=== PATIENT | male | born 1985 | race Caucasian/White ===

== ENCOUNTER 2022-08-11 16:25 | Outpatient (CLI) | payer OTHER, SELFPAY ==
[2022-08-11 22:08] LABS: Albumin* 5.4 g/dL (3.3-5.0); Chloride* 101 mmol/L (96-114)
[2022-08-11 22:09] LABS: Potassium* 5.7 mmol/L (3.6-5.1); Sodium* 137 mmol/L (135-149)
[2022-08-11 22:11] LABS: Aspartate Amino Transferase* 116 U/L (12-35); Bilirubin Total* 0.7 mg/dL (0.1-1.5); Carbon Dioxide* 23 mmol/L (20-32); Creatinine* 1.8 mg/dL (0.5-1.5); Estimated Glomerular Filt Rate 50 ml/min; Total Protein* 8.4 g/dL (6.0-8.3)
[2022-08-11 22:12] LABS: Alanine Aminotransferase* 73 U/L (4-50); Alkaline Phosphatase* 125 U/L (40-150); Blood Urea Nitrogen* 35 mg/dL (5-24); Calcium* 10.4 mg/dL (8.4-10.6); Glucose* 105 mg/dL (60-115)
== END 2022-08-11 16:26 | disposition home or self-care (01) ==
LOC: LKVREF 16:26
PROVIDERS: PCP Family Medicine; Visit Provider Family Medicine
DX: I10 Essential (primary) hypertension (principal); R79.89 Other specified abnormal findings of blood chemistry
CPT/HCPCS: 80053

== ENCOUNTER 2022-12-08 14:30 | Outpatient (CLI) | payer OTHER, SELFPAY | END 2022-12-08 14:31 | disposition home or self-care (01) | LOC: NFLDREF 12-13 09:03 | PROVIDERS: PCP Family Medicine; Referring Provider Family Medicine; Visit Provider Nurse Practitioner Family | DX: I10 Essential (primary) hypertension (principal); N63.10 Unspecified lump in the right breast, unspecified quadrant | CPT/HCPCS: 80048 ==

== ENCOUNTER 2022-12-13 14:30 | Outpatient (CLI) | payer OTHER, SELFPAY | END 2022-12-13 14:31 | disposition home or self-care (01) | LOC: NFLDREF 12-15 06:49 | PROVIDERS: PCP Family Medicine; Referring Provider Family Medicine; Visit Provider Nurse Practitioner Family | DX: E03.9 Hypothyroidism, unspecified (principal); N63.10 Unspecified lump in the right breast, unspecified quadrant; I10 Essential (primary) hypertension | CPT/HCPCS: 77066; 84443; G0279 ==

== ENCOUNTER 2023-03-02 08:10 | Outpatient (CLI) | payer OTHER, SELFPAY | END 2023-03-02 08:11 | disposition home or self-care (01) | LOC: NFLDREF 03-03 14:55 | PROVIDERS: PCP Family Medicine; Referring Provider Family Medicine; Visit Provider Family Medicine | DX: E03.9 Hypothyroidism, unspecified (principal); I10 Essential (primary) hypertension; R79.89 Other specified abnormal findings of blood chemistry | CPT/HCPCS: 80053; 80061; 84443 ==

== ENCOUNTER 2024-06-12 08:08 | Outpatient (CLI) | payer OTHER, SELFPAY | END 2024-06-12 08:09 | disposition home or self-care (01) | LOC: NFLDREF 15:42 | PROVIDERS: PCP Family Medicine; Referring Provider Family Medicine; Visit Provider Family Medicine | DX: E66.9 Obesity, unspecified (principal); E03.9 Hypothyroidism, unspecified; E11.9 Type 2 diabetes mellitus without complications; R79.89 Other specified abnormal findings of blood chemistry; I10 Essential (primary) hypertension; R53.83 Other fatigue; G40.409 Other generalized epilepsy and epileptic syndromes, not intractable, without status epilepticus | CPT/HCPCS: 80053; 80061; 82043; 82570; 84443 ==

== ENCOUNTER 2025-02-23 15:05 | Emergency (ER) | payer OTHER, SELFPAY ==
[2025-02-23] VITALS (20 sets, daily range): BP systolic 116–136; BP diastolic 65–78; PULSE 60–87; RESP 14–24; TEMP 37.1; O2SAT 96–99; BMI 38.0
--- OUTSIDE RECORDS SUMMARY | 2025-02-23 15:06 | XMS_ITS | Clinical Summary ---
Author Organization [facility] Address [address] [place] [address] Care Team Providers Care Fuel Attendant Name Role Phone Pcp, No Primary Care Provider Unavailabl e Allergies No known active allergies Medications amLODIPine (NORVASC) 10 mg tabletIndicatio ns:HTN (hypertension) TAKE 1 TABLET BY MOUTH ONCE DAILY 30 tablet 11/01/2016 Active lisinopril-hydr ochlorothiazide , 20-25 mg, (PRINZIDE, ZESTORETIC) 20-25 mg per tabletIndicatio ns:HTN (hypertension) TAKE 1 TABLET BY MOUTH EVERY MORNING 30 tablet 11/01/2016 Active levothyroxine (SYNTHROID) 88 mcg tablet Take 88 mcg by mouth once daily. 02/11/2025 Active metoprolol succinate SR (TOPROL XL) 200 mg Sustained-Relea se tablet Take 200 mg by mouth once daily. 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 10/28/2014 Overview (10/28/2014): CREATININE (mg/dL) Date Value 10/27/2014 1.93* HTN (hypertension) 08/20/2014 Obese 08/20/2014 Proteinuria 08/20/2014 Hypertensive urgency 08/20/2014 Encounters Date Type Department Care Team Description 02/21/2025 12:36 PM CDT - 02/21/2025 1:32 PM CDT Emergency [facility] [address] [place] [address] Jael Ayoub PA Pleural effusion (Primary Dx) Discharge Disposition: Home Self Care 02/21/2025 Travel from Last 3 Months Immunizations Immunization Administration Dates Next Due Tdap 06/12/2009 Family History Medical History Relation Name Comments Good Health Brother Hypertension Father Good Health Mother Hypertension Sister Relation Name Status Comments Brother Father Maternal Grandfather celluli tis Maternal Grandmother old age Mother Paternal Grandfather alzheim er Paternal Grandmother heart p roblems Sister Social History Tobacco Use Types Packs/Day Years Used Date Smoking Tobacco: Never Tobacco Cessation:Counseling Given: No Alcohol Use Standard Drinks/Week Comments Yes 3.3 (1 standard drink = 0.6 oz p ure alcohol) hard liquor every other week Interpersonal Safety Answer Date Record ed Are you being hit, kicked, p ushed or yelled at (see row info)? 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 EXECUTIVE Gender Identity Not on file Sexual Orientation Not on file Obstetrics History Last Filed Vital Signs Vital Sign Reading Time Taken Comments Blood Pressure 121/78 02/21/2025 12:41 PM CDT Pulse 94 02/21/2025 12:41 PM CDT Temperature 37.2 C (98.9 F) 02/21/2025 12:41 PM CDT Respiratory Rate 20 02/21/2025 12:41 PM CDT Oxygen Saturation 99% 02/21/2025 12:41 PM CDT Inhaled Oxygen Concentration - - Weight 115.7 kg (255 lb) 02/21/2025 12:41 PM CDT Height 172.7 cm (5' 8) 02/21/2025 12:41 PM CDT Body Mass Index 38.77 02/21/2025 12:41 PM CDT Plan of Treatment Health Maintenance Due Date Last Done Comments Depression screening for age 12+ 1998 HIV for age 15-65 2001 BMI (ht and wt on same day) for age 18+ 2004 Hepatitis B series for 19+ ( 1 of 3 - 19+ 3-dose series) 2005 Pneumococcal series for age 6-49 (1 of 2 - PCV) 2005 Tetanus booster 06/12/2019 06/12/2009 Lipids for age 35-44 2021 08/20/2014 COVID-19 vaccine series (2023- season) 2024 08/17/2021, 01/05/2021, 12/15/2020 Influenza Vaccine (#1) 2025 Hepatitis C screening for age 18-79 Completed 10/27 Goals Goal Patient Goal Type Associated Problems Recent Progress Patient-Stated? Author BLOOD PRESSURE-YANELY INTAINS BP LESS THAN 130/80 Blood Pressure No Trish Odom MD Procedures Procedure Name Priority Date/Time Associated Diagnosis Comments XR CHEST 2 VIEWS PA AND LATERAL STAT 02/21/2025 12:59 PM CDT ANTI HCV Routine 10/27/2014 12:34 PM CDT Fatty liver LIPID PANEL W REFLEX MEASURED LDL Routine 08/20/2014 10:46 AM CHANNEL EXECUTIVE HTN (hypertension) from Last 3 Months or Most Recently Relevant to Health Maintenance Results * XR CHEST 2 VIEWS PA AND LATERAL (02/21/2025 12:59 PM CDT) Anatomical Region Laterality Modality CHEST, THORAX, Lung, HEART Compu amanda Radiography 02/21/2025 1:17 PM CDT Impressions 02/21/2025 1:17 PM CDT Small left pleural effusion Dictated by Scar Myers MD @ 02/21/2025 1:17:27 PM (Electronically Signed) Narrative 02/21/2025 1:17 PM CDT For Patients: As a result of the Century Cures Act, medical imaging exams and procedure reports are released immediately into your electronic medical record. You may view this report before your referring provider. If you have questions, please contact your health care provider. INDICATION: Chest pain TECHNIQUE: PA and lateral COMPARISON: None FINDINGS: Small left pleural effusion. Clear lungs. Heart size and pulmonary vasculature within normal limits. No significant osseous abnormality. Procedure Note Scar Myers MD - 02/21/2025 For Patients: As a result of the Cures Act, medical imagingexams and procedure reports are released immediately into your electronicmedical record. You may view this report before your referring provider.If you have questions, please contact your health care provider. INDICATION: Chest pain TECHNIQUE: PA and lateral COMPARISON: None FINDINGS: Small left pleural effusion. Clear lungs. Heart size and pulmonaryvasculature within normal limits. No significant osseous abnormality. IMPRESSION: Small left pleural effusion Dictated by Scar Myers MD @ 02/21/2025 1:17:27 PM (Electronically Signed) us [facility] Final Resu lt * ANTI HCV (10/27/2014 12:34 PM CDT) Pathologist [facility] HEPATITIS C ANTIBODY Non-Reacti ve Non-Reacti ve 10/27/2014 8:41 PM CDT [facility] Blood specimen (specimen) BLOOD SPECIMEN / Unknown Venipuncture / Unknown 10/27/2014 12:34 PM CDT 10/27/2014 12:34 PM CDT Narrative [facility] - 10/27/2014 8:41 PM CDT Antibodies to HCV not detected; does not exclude the possibility of exposure to HCV. us Trish Odom MD SEND OUTS Final Result [facility] [address] [place] [address], [place] * (ABNORMAL) LIPID PANEL W REFLEX MEASURED LDL (08/20/2014 10:46 AM CHANNEL EXECUTIVE) Pathologist [facility] CHOLESTEROL,TOTAL 291(H) 100 - 199 mg/dL 08/20/2014 8:48 PM CHANNEL EXECUTIVE [facility] TRIGLYCERIDES 259(H) <150 mg/dL 08/20/2014 8:48 PM CHANNEL EXECUTIVE [facility] HDL CHOLESTEROL 110 >40 mg/dL 5 8:48 PM CHANNEL EXECUTIVE [facility] NON-HDL CHOLESTEROL 181(H) <145 mg/dl 08/20/2014 8:48 PM CHANNEL EXECUTIVE [facility] CHOL/HDL RATIO 2.65 <4.50 08/20/2014 8:48 PM CHANNEL EXECUTIVE [facility] LDL CHOLESTEROL 129 <=130 mg/dL 08/20/2014 8:48 PM CHANNEL EXECUTIVE [facility] PATIENT STATUS FASTING 08/20/2014 8:48 PM CHANNEL EXECUTIVE [facility] Blood specimen (specimen) BLOOD SPECIMEN / Unknown Venipuncture / Unknown 08/20/2014 10:46 AM CHANNEL EXECUTIVE 08/20/2014 10:46 AM CHANNEL EXECUTIVE Trish Odom MD CHEMISTRY Final Result [facility] [address] [place] [address], from Last 3 Months or Most Recently Relevant to Health Maintenance Insurance [facility] Care Teams Fuel Attendant Relationship Specialty Start Date End Date Pcp, No . PCP - General 02/21/25
--- OUTSIDE RECORDS SUMMARY | 2025-02-23 15:06 | XMS_ITS | Encounter Summary ---
Author Organization [facility] Address [address] [place] [address] Care Team Providers Care Receiver Setter Name Role Phone Jeff An MD Unavailable [phone] Fadi Hickman MD Unavailable [phone] Willi Pruett MD Primary Care Provider [phone] Encounter Details Date Type Department Care Team (Late st Contact Info) Description 10/31/2016 Team Conference [facility] [address] [place] [address] Dao Delarosa MD [facility] [address] [place] [address] Social History Tobacco Use Types Packs/Day Years Used Date Smoking Tobacco: Never Alcohol Use Standard Drinks/Week Comments No 0 (1 standard drink = 0.6 oz pur e alcohol) Sex and Gender Information Value Date Recorded Sex Assigned at Not on file Legal 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 Gender Identity Not on file Sexual Orientation Not on file documented as of this encounter Miscellaneous Notes * Telephone Encounter - Dao Delarosa MD - 10/31/2016 11:07 AM CDT Patient Position (indicated by x): Supine X Supine with torso rolled up on a bump Floppy lateral on torso length kumar bag Lateral decubitus, kumar bag, full length Lateral decubitus, Wixson hip positioner Safety paddle side supports x 2 clamped to side rail Lithotomy, both legs in yellow padded leg leslie Lithotomy, single leg in yellow padded leg leslie Prone on blanket rolls/round gel pad Prone on Renzo (arched) frame on Ketan table Single thigh in orange arthroscopy clamp Beach chair semi recumbent Spider limb positioner Arm out on radiolucent arm table X Split drape with top bar Revision ANNEMARIE drape with plastic side bags for leg Extremity drape Shoulder pack drape Laparotomy drape Cohen catheter General Equipment Requests (indicated by x): C-Arm with C-Armor drape C-Arm (video capable, [employer] R[employer] 9900 model) O-Arm with Stealth imaging Fracture Table X Ketan XR Table Cell saver Hickman Biopsy trephine set w/ K-wire & pituitary rongeurs Small pituitary rongeur Vick's angled curettes, narrow shaft Bone graft, kapner gouges Midas Edd Medtronic sarah, electric motor Phenol 5% X [place] BMAC stem cell Vancomycin 1 gram powder Zometa 4 mg vials Depo Medrol steroid Blunt Pelvic Retractor (AO 398.55, Blunt Hohmann with slight bend) (1) Portable hand held radiation detector machine for sentinel node biopsy and (2) Lymphazurin Lambotte Osteotomes Specimens and cultures (indicated by x): Tissue cultures, aerobic and anaerobic without gram stain Frozen section pathology specimens - fresh pathology specimens - formalin Plan- Core decompression RIGHT hip for EtOH ONFH ARCO 2- right ARCO 3- left documented in this encounter Plan of Treatment Not on file documented as of this encounter Visit Diagnoses Not on filedocumented in this encounter Care Teams Receiver Setter Relationship Specialty Start Date End Date Willi Pruett MD [facility] [address] [place] [address] PCP - General Family Practice 10/13/16 Jeff An MD [facility] [address] [place] [address] Family Practice 10/11/16 Fadi Hickman MD [address] [place], [place] [id number] [place] [address] Orthopedics 10/11/16 documented as of this encounter
--- OUTSIDE RECORDS SUMMARY | 2025-02-23 15:06 | XMS_ITS | Clinical Summary ---
Author Organization [facility] Address [address] [place] [address] Care Team Providers Care Track Rider Name Role Phone Jeff An MD Unavailable [phone] Fadi Hickman MD Unavailable [phone] Willi Pruett MD Primary Care Provider [phone] Allergies No known active allergies Medications amLODIPine (NORVASC) 10 MG tablet Take 10 mg by mouth At Bedtime 7 Active hydrochlorothiazi de (HYDRODIURIL) 25 MG tabletIndications :Hypertensive urgency Take 1 tablet (25 mg) by mouth daily 30 tablet 1 7 Active metoprolol succinate (TOPROL-XL) 50 MG 24 hr tablet 8 Active ASPIRIN NOT PRESCRIBED (INTENTIONAL)Cata cations:Essential hypertension Please choose reason not prescribed, below 0 each 8 Active STATIN NOT PRESCRIBED, INTENTIONAL,Indic ations:Essential hypertension Evaluation in progress, followed by PCP 8 Active Active Problems Problem Noted Date Diagnosed Date Recent onset of diabetes mellitus 10/28/2014 Overview (10/13/2016): Overview: Formatting of this note may be different from the original. Type II most likely HEMOGLOBIN A1C SCREENING (% Total Hgb) Date Value 10/27/2014 6.4* Hypertensive renal disease 10/28/2014 Overview (10/13/2016): Overview: Formatting of this note may be different from the original. CREATININE (mg/dL) Date Value 10/27/2014 1.93* Hypertensive emergency 08/20/2014 Hypertension 08/20/2014 Hypertensive urgency 08/20/2014 Adiposity 08/20/2014 Proteinuria 08/20/2014 Social History Tobacco Use Types Packs/Day Years Used Date Smoking Tobacco: Never Smokeless Tobacco: Never Tobacco Cessation:Ready to Q uit: No Alcohol Use Standard Drinks/Week Comments Yes 0 (1 standard drink = 0.6 oz pur e alcohol) 6 Adolescent Education Answer Date Record ed Getting School Help Needed Not on file 05/20 Sex and Gender Information Value Date Recorded Sex Assigned at Not on file Legal Sex Male 3:40 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 Gender Identity Not on file Sexual Orientation Not on file Last Filed Vital Signs Vital Sign Reading Time Taken Comments Blood Pressure 150/89 06/12/2018 11:37 AM CDT Pulse 111 06/12/2018 11:37 AM CDT Temperature 36.8 C (98.2 F) 12/02/2016 2:00 PM CDT Respiratory Rate 18 06/12/2018 11:3 7 AM CDT Oxygen Saturation 100% 06/12/2018 11: 37 AM CDT Inhaled Oxygen Concentration - - Weight 103.1 kg (227 lb 6.4 oz) 018 11:37 AM CDT Height 175.3 cm (5' 9) 06/12/2018 11:3 7 AM CDT Body Mass Index 33.58 06/12/2018 11:37 AM CDT Plan of Treatment Not on file Insurance [address] [place] [address] [place] [address] [facility] SAVERS [facility] [employer] Advance Directives For more information, please contact: [phone] * Full Code (Latest Code Status on File) Date Activated Date Inactivated Comments 08/22/2014 8:20 AM * Full Code Date Activated Date Inactivated Comments 08/20/2014 2:51 PM 08/22/2014 8:20 AM Care Teams Track Rider Relationship Specialty Start Date End Date Willi Pruett MD [facility] [address] [place] [address] PCP - General Family Practice 10/13/16 Jeff An MD [facility] [address] [place] [address] Family Practice 10/11/16 Fadi Hickman MD [facility] [place] [address] Orthopedics 10/11/16
--- OUTSIDE RECORDS SUMMARY | 2025-02-23 15:06 | XMS_ITS | Encounter Summary ---
Author Organization [facility] Address [address] [place] [address] Care Team Providers Care Golf Club Facer Name Role Phone Jeff An MD Unavailable [phone] Fadi Hickman MD Unavailable [phone] Willi Pruett MD Primary Care Provider [phone] Reason for Visit * Reason Onset Date Comments Previsit 06/11/2018 Encounter Details Date Type Department Care Team (Late st Contact Info) Description 06/11/2018 PRE VISIT [facility] [address] [address] Rosamaria Corbett MD [address] [place] [address] Previsit Social History Tobacco Use Types Packs/Day Years Used Date Smoking Tobacco: Never Alcohol Use Standard Drinks/Week Comments Yes 0 (1 standard drink = 0.6 oz pur e alcohol) 6 Sex and Gender Information Value Date Recorded Sex Assigned at Not on file Legal Sex Male 3:40 AM OPEN CUT 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 Gender Identity Not on file Sexual Orientation Not on file documented as of this encounter Plan of Treatment Not on file documented as of this encounter Visit Diagnoses Not on filedocumented in this encounter Care Teams Golf Club Facer Relationship Specialty Start Date End Date Willi Pruett MD [facility] [address] [place] [address] PCP - General Family Practice 10/13/16 Jeff An MD [facility] [place] [address] Family Practice 10/11/16 Fadi Hickman MD [facility] [address] [place] [address] Orthopedics 10/11/16 documented as of this encounter
--- OUTSIDE RECORDS SUMMARY | 2025-02-23 15:06 | XMS_ITS | Clinical Summary ---
Author Organization [facility] Address [address] [address] Phone Care Team Providers Care Bed Bug Exterminator Name Role Phone Unavailable Primary Care Provider Unavailabl e Allergies No known active allergies Medications hydroCHLOROthiaz matthew (Hydrodiuril) 25 MG tablet Take 25 mg by mouth one time a day. Active amLODIPine (Norvasc) 10 MG tablet Take 10 mg by mouth one time a day. Active Metoprolol Succinate 100 MG Capsule ER 24 Hour Sprinkle Take by mouth. Active Social History Tobacco Use Types Packs/Day Years Used Date Smoking Tobacco: Never Assessed Sex and Gender Information Value Date Recorded Sex Assigned at Not on file Legal Sex Male 11:33 PM CDT Gender Identity Not on file Sexual Orientation Not on file Last Filed Vital Signs Vital Sign Reading Time Taken Comments Blood Pressure 199/122 03/23/2020 1:40 AM CDT Pulse 116 03/23/2020 1:40 AM CDT Temperature 36.8 C (98.2 F) 03/22/2020 11:44 PM CDT Respiratory Rate 28 03/23/2020 1:40 AM CDT Oxygen Saturation 99% 03/23/2020 1:40 AM CDT Inhaled Oxygen Concentration - - Weight 112 kg (246 lb 14.6 oz) 03/22/2020 11:44 PM CDT Height - - Body Mass Index - - Plan of Treatment Health Maintenance Due Date Last Done Comments Hepatitis B Vaccine (Standin g Order) (1 of 3 - 19+ 3-dose series) 2005 PERTUSSIS (Standing Order) 2005 TETANUS (Standing Order) 2005 HPV Vaccine (Standing Order) Aged Out No longer eligible based on patient's age to complete this topic Pneumococcal/PCV20 Vaccine: Pediatrics (2-5 yrs) and At-Risk Patients (6-49 yrs) (Standing Order) Aged Out No longer eligible b ased on patient's age to complete this topic Insurance [address] [place] [address] [employer] [facility] [address] [place] [id number]
--- NOTE | 2025-02-23 15:19 | ED.CHESTPAIN ---
HPI - Chest Pain General Time Seen by Provider: 15:19 <Portia Dubon MD - Last Filed: 02/23/25 15:47> Date Seen: 02/23/25 <Portia Dubon MD - Last Filed: 02/23/25 15:47> Chief Complaint: Chest Pain <Portia Dubon MD - Last Filed: 02/23/25 15:47> Stated Complaint: Chest pains for past week <Portia Dubon MD - Last Filed: 02/23/25 15:47> Time Seen by Provider: 02/23/25 15:18 <Portia Dubon MD - Last Filed: 02/23/25 15:47> Source: patient, RN notes reviewed and old records reviewed <Portia Dubon MD - Last Filed: 02/23/25 15:47> Mode of arrival: ambulatory <Portia Dubon MD - Last Filed: 02/23/25 15:47> Limitations: no limitations <Portia Dubon MD - Last Filed: 02/23/25 15:47> History of Present Illness HPI narrative: Bar is a very pleasant 39-year-old male with a history of hypothyroidism, hypertension currently on amlodipine Synthroid lisinopril and metoprolol who comes to the emergency room with ongoing chest pain. Patient notes that he developed chest pain bilateral upper chest 1 week ago. He notes that it was definitely worse with deep inspiration. He was seen on MondayFebruary 21 at which time he had a chest x-ray done in urgent care that showed a small pleural effusion. Since that time he has had some improvement and now the pain is mainly in his left upper chest. He has not had any shortness of breath cough or recent illness over the last month. He has not had pain like this in the past. He notes no recent travel, swelling of his calves or calf tenderness or history of blood clots. His family is otherwise healthy. He had been using ibuprofen which seemed to help but did not have any today. He was told to seek medical attention if he is not improving. He does have a follow-up appointment with his primary doctor [facility] on MondayFebruary 28. Patient denies wheezing, vomiting, nausea, fever, sore throat or runny nose. Patient does not smoke, uses alcohol occasionally and does not use drugs. <Portia Dubon MD - Last Filed: 02/23/25 15:47> Related Data Home Medications: Previous Rx's ?Medication ?Instructions ?Recorded amlodipine 10 mg tablet 10 mg PO QDAY #90 tabs 11/19/24 levothyroxine 88 mcg tablet 88 mcg PO QDAY #90 tabs 11/19/24 metoprolol succinate 200 mg 200 mg PO QDAY #90 tabs 11/19/24 tablet,extended release 24 hr lisinopril 20 1 tab PO QDAY #30 tabs 01/24/25 mg-hydrochlorothiazide 25 mg tablet colchicine 0.6 mg tablet 0.3 mg (1/2 x 0.6 mg) PO DAILY #7 02/23/25 tabs <Portia Dubon MD - Last Filed: 02/23/25 15:47> Allergies/Adverse Reactions: Allergies Allergy/AdvReac Type Severity Reaction Status Date / Time No Known Allergies Allergy Unknown Verified 02/23/25 19:30 <Portia Dubon MD - Last Filed: 02/23/25 15:47> Review of Systems Status of ROS Reports: 10 or more systems reviewed and unremarkable except as noted in History and below <Portia Dubon MD - Last Filed: 02/23/25 15:47> Const Reports: fatigue; Denies: fever or chills <Portia Dubon MD - Last Filed: 02/23/25 15:47> Cardio Denies: chest pain, swelling of feet/ankles, lightheadedness or shortness of breath with exertion <Portia Dubon MD - Last Filed: 02/23/25 15:47> Resp Denies: shortness of breath, cough or wheezing <Portia Dubon MD - Last Filed: 02/23/25 15:47> GI Denies: abdominal pain, nausea or vomiting <Portia Dubon MD - Last Filed: 02/23/25 15:47> Denies: painful urination <Portia Dubon MD - Last Filed: 02/23/25 15:47> Musculo Denies: back pain <Portia Dubon MD - Last Filed: 02/23/25 15:47> Endo Reports: fatigue <Portia Dubon MD - Last Filed: 02/23/25 15:47> Allergy/Immuno Denies: wheezing <Portia Dubon MD - Last Filed: 02/23/25 15:47> [facility] Medical History: Medical History 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 - Other generalized epilepsy and epileptic syndromes, not intractable, without status epilepticus (ICD-10) Obesity ?E66.9 - Obesity, unspecified (ICD-10) Fatty liver ?K76.0 - Fatty (change of) liver, not elsewhere classified (ICD-10) History of alcoholism ?F10.21 - Alcohol dependence, in remission (ICD-10) History of alcoholic hepatitis ?Z87.19 - Personal history of other diseases of the digestive system (ICD-10) <Portia Dubon MD - Last Filed: 02/23/25 15:47> Social History: Social History Smoking Status: Never smoker How often do you have a drink containing alcohol: 2-4 times a month AUDIT-C Alcohol total score: 2 Non-prescribed substance use: denies use service: No <Portia Dubon MD - Last Filed: 02/23/25 15:47> Exam Narrative Exam Narrative: Patient is alert and oriented. No acute distress. External ears eyes nose clear. Neck is supple. Heart with regular rate and rhythm. Initially I did think I auscultated a rub but I do think this is a normal systolic murmur that I am hearing. Lungs are clear in all lung hester. There is no calf tenderness in lower extremities are not edematous. <Portia Dubon MD - Last Filed: 02/23/25 15:47> Const Vital Signs, click to edit/add: Vital Signs - 24 hr 02/23/25 15:09 02/23/25 15:51 02/23/25 16:00 Temperature 98.7 F Pulse Rate 74 Pulse Rate [Pulse Oximeter] 87 Respiratory Rate 18 21 20 Blood Pressure Blood Pressure [Right Upper Arm] 136/75 Pulse Oximetry 98 97 Oxygen Delivery Method Room Air 02/23/25 16:14 02/23/25 16:15 02/23/25 16:30 Temperature Pulse Rate Pulse Rate [Pulse Oximeter] Respiratory Rate 21 17 19 Blood Pressure 126/74 Blood Pressure [Right Upper Arm] Pulse Oximetry Oxygen Delivery Method 02/23/25 16:45 02/23/25 17:00 02/23/25 17:02 Temperature Pulse Rate 60 61 Pulse Rate [Pulse Oximeter] Respiratory Rate 19 23 22 Blood Pressure 116/65 Blood Pressure [Right Upper Arm] Pulse Oximetry 96 99 Oxygen Delivery Method 02/23/25 17:03 02/23/25 17:15 02/23/25 17:30 Temperature Pulse Rate 60 74 62 Pulse Rate [Pulse Oximeter] Respiratory Rate 23 22 19 Blood Pressure Blood Pressure [Right Upper Arm] Pulse Oximetry 96 99 97 Oxygen Delivery Method 02/23/25 17:32 02/23/25 17:45 02/23/25 18:00 Temperature Pulse Rate 65 70 67 Pulse Rate [Pulse Oximeter] Respiratory Rate 22 24 22 Blood Pressure 131/66 Blood Pressure [Right Upper Arm] Pulse Oximetry 97 96 97 Oxygen Delivery Method 02/23/25 18:02 02/23/25 18:15 02/23/25 19:20 Temperature Pulse Rate 65 72 Pulse Rate [Pulse Oximeter] Respiratory Rate 22 22 14 Blood Pressure 128/78 Blood Pressure [Right Upper Arm] Pulse Oximetry 98 97 Oxygen Delivery Method 02/23/25 19:21 02/23/25 19:30 Temperature Pulse Rate 76 79 Pulse Rate [Pulse Oximeter] Respiratory Rate 20 16 Blood Pressure 129/67 Blood Pressure [Right Upper Arm] Pulse Oximetry 97 97 Oxygen Delivery Method <Portia Dubon MD - Last Filed: 02/23/25 15:47> Vital Signs - 24 hr 02/23/25 15:09 02/23/25 15:51 02/23/25 16:00 Temperature 98.7 F Pulse Rate 74 Pulse Rate [Pulse Oximeter] 87 Respiratory Rate 18 21 20 Blood Pressure Blood Pressure [Right Upper Arm] 136/75 Pulse Oximetry 98 97 Oxygen Delivery Method Room Air 02/23/25 16:14 02/23/25 16:15 02/23/25 16:30 Temperature Pulse Rate Pulse Rate [Pulse Oximeter] Respiratory Rate 21 17 19 Blood Pressure 126/74 Blood Pressure [Right Upper Arm] Pulse Oximetry Oxygen Delivery Method 02/23/25 16:45 02/23/25 17:00 02/23/25 17:02 Temperature Pulse Rate 60 61 Pulse Rate [Pulse Oximeter] Respiratory Rate 19 23 22 Blood Pressure 116/65 Blood Pressure [Right Upper Arm] Pulse Oximetry 96 99 Oxygen Delivery Method 02/23/25 17:03 02/23/25 17:15 02/23/25 17:30 Temperature Pulse Rate 60 74 62 Pulse Rate [Pulse Oximeter] Respiratory Rate 23 22 19 Blood Pressure Blood Pressure [Right Upper Arm] Pulse Oximetry 96 99 97 Oxygen Delivery Method 02/23/25 17:32 02/23/25 17:45 02/23/25 18:00 Temperature Pulse Rate 65 70 67 Pulse Rate [Pulse Oximeter] Respiratory Rate 22 24 22 Blood Pressure 131/66 Blood Pressure [Right Upper Arm] Pulse Oximetry 97 96 97 Oxygen Delivery Method 02/23/25 18:02 02/23/25 18:15 02/23/25 19:20 Temperature Pulse Rate 65 72 Pulse Rate [Pulse Oximeter] Respiratory Rate 22 22 14 Blood Pressure 128/78 Blood Pressure [Right Upper Arm] Pulse Oximetry 98 97 Oxygen Delivery Method 02/23/25 19:21 02/23/25 19:30 Temperature Pulse Rate 76 79 Pulse Rate [Pulse Oximeter] Respiratory Rate 20 16 Blood Pressure 129/67 Blood Pressure [Right Upper Arm] Pulse Oximetry 97 97 Oxygen Delivery Method <Rogers Delgado MD - Last Filed: 02/23/25 16:50> Vital Signs - 24 hr 02/23/25 15:09 02/23/25 15:51 02/23/25 16:00 Temperature 98.7 F Pulse Rate 74 Pulse Rate [Pulse Oximeter] 87 Respiratory Rate 18 21 20 Blood Pressure Blood Pressure [Right Upper Arm] 136/75 Pulse Oximetry 98 97 Oxygen Delivery Method Room Air 02/23/25 16:14 02/23/25 16:15 02/23/25 16:30 Temperature Pulse Rate Pulse Rate [Pulse Oximeter] Respiratory Rate 21 17 19 Blood Pressure 126/74 Blood Pressure [Right Upper Arm] Pulse Oximetry Oxygen Delivery Method 02/23/25 16:45 02/23/25 17:00 02/23/25 17:02 Temperature Pulse Rate 60 61 Pulse Rate [Pulse Oximeter] Respiratory Rate 19 23 22 Blood Pressure 116/65 Blood Pressure [Right Upper Arm] Pulse Oximetry 96 99 Oxygen Delivery Method 02/23/25 17:03 02/23/25 17:15 02/23/25 17:30 Temperature Pulse Rate 60 74 62 Pulse Rate [Pulse Oximeter] Respiratory Rate 23 22 19 Blood Pressure Blood Pressure [Right Upper Arm] Pulse Oximetry 96 99 97 Oxygen Delivery Method 02/23/25 17:32 02/23/25 17:45 02/23/25 18:00 Temperature Pulse Rate 65 70 67 Pulse Rate [Pulse Oximeter] Respiratory Rate 22 24 22 Blood Pressure 131/66 Blood Pressure [Right Upper Arm] Pulse Oximetry 97 96 97 Oxygen Delivery Method 02/23/25 18:02 02/23/25 18:15 02/23/25 19:20 Temperature Pulse Rate 65 72 Pulse Rate [Pulse Oximeter] Respiratory Rate 22 22 14 Blood Pressure 128/78 Blood Pressure [Right Upper Arm] Pulse Oximetry 98 97 Oxygen Delivery Method 02/23/25 19:21 02/23/25 19:30 Temperature Pulse Rate 76 79 Pulse Rate [Pulse Oximeter] Respiratory Rate 20 16 Blood Pressure 129/67 Blood Pressure [Right Upper Arm] Pulse Oximetry 97 97 Oxygen Delivery Method <Ifrah Rosado MD - Last Filed: 02/23/25 21:14> Documenting provider has reviewed patient's vital signs: yes <Portia Dubon MD - Last Filed: 02/23/25 15:47> Course Course ED Course: Patient is alert and oriented. Presenting with chest pain that has been ongoing for a week and now localized to the left upper chest. Patient did have some relief while leaning forward with his symptoms. He does have pain with deep inspiration. No recent fever chills or viral symptoms. Differential diagnosis includes but is not limited to pericarditis, myocarditis, pleurisy, pneumonia, angina, chest wall pain. This is much less likely an MRI or angina given the length of his symptoms and the fact that it is very much associated with deep inspiration. This is more likely pleurisy but I cannot rule out pericarditis at this time. Would recommend placement of IV, EKG, troponin, cardiac surgeon, labs to include CBC, comprehensive panel, CRP, D-dimer. Do not feel the need to repeat x-ray given the fact that it only showed small pleural effusion according to his [facility] records. If D-dimer is positive would recommend CT of the chest. <Portia Dubon MD - Last Filed: 02/23/25 15:47> Reevaluation(s) Reevaluation #1: Note further if review of the chart notes patient to have a history of alcohol abuse and alcoholic hepatitis with elevation of liver enzymes. <Portia Dubon MD - Last Filed: 02/23/25 15:47> Time of Reevaluation #2: 18:22 <Ifrah Rosado MD - Last Filed: 02/23/25 21:14> Reevaluation #2: Have introduced myself to the patient, reviewed that I am taking over care. We reviewed that his kidney function is showing some worsening with creatinine of 1.9, sodium is low at 129. It is not been low before. Pain or infection could be driving some of this. We did review that his D-dimer is significantly elevated. He is going to get a chest CT PE protocol. We did review that we are going to rule out or in things like infectious etiology such as pneumonia, pulmonary emboli. I think is less likely that he would have a dissection as he really is not having symptomatology that would point that way. He was wondering if he maybe had a lung infection, reviewed with him that we will certainly see this on CT imaging. <Ifrah Rosado MD - Last Filed: 02/23/25 21:14> Consultations Consultation #1: Did speak with Dr. Senior Cardiology from [facility] on this patient. Reviewed patient's case and current lab and CT findings. He agrees that outpatient echo is reasonable. This could be mild pericarditis but with the elevated creatinine, understands that we can not use NSAIDs. He discussed maybe trying just once daily colchicine, will review this with patient and make sure he understands the need for close follow-up. He does have an appointment with his primary. Did review all this with patient. Went over his CT findings, labs. He is aware that he should not take NSAIDs. 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 He is drinking but certainly not as much as he use to. At this time, he is safe for discharge to home in for trial of outpatient management. He is stable, is wanting to go home at this time. He has absolutely no recent travel, no leg symptoms such as swelling, no discomfort, no palpable pain or edema. Did discuss the elevated D-dimer and possibility of doing ultrasounds for DVT rule out. This time he would like to go home. I agree that he really is low likelihood of having any DVTs. We have discussed this however. Driver License Examiner does wonder if the pericardial effusion, small bilateral pleural effusions could not some how be renally related. I did discuss with patient about referral back to Nephrology, he states he thought he saw 1 before but that was when he was drinking heavy. He certainly could have some underlying process that is not alcohol affiliated however. <Ifrah Rosado MD - Last Filed: 02/23/25 21:14> Time: 20:56 <Ifrah Rosado MD - Last Filed: 02/23/25 21:14> Vital Signs Vital signs: Initial Vital Signs Temperature 98.7 F 02/23/25 15:09 Temperature Source Temporal Artery Scan 02/23/25 15:09 Pulse Rate 87 02/23/25 15:09 Respiratory Rate 18 02/23/25 15:09 Blood Pressure 136/75 02/23/25 15:09 Blood Pressure Mean 95 02/23/25 15:09 Pulse Oximetry 98 02/23/25 15:09 Oxygen Delivery Method Room Air 02/23/25 15:09 Vital Signs Temperature 98.7 F 02/23/25 15:09 Pulse Rate 87 02/23/25 15:09 Respiratory Rate 18 02/23/25 15:09 Blood Pressure 136/75 02/23/25 15:09 Pulse Oximetry 98 02/23/25 15:09 Oxygen Delivery Method Room Air 02/23/25 15:09 Temperature 98.7 F 02/23/25 15:09 Pulse Rate 79 02/23/25 19:30 Respiratory Rate 16 02/23/25 19:30 Blood Pressure 129/67 02/23/25 19:21 Pulse Oximetry 97 02/23/25 19:30 Oxygen Delivery Method Room Air 02/23/25 15:09 <Portia Dubon MD - Last Filed: 02/23/25 15:47> Initial Vital Signs Temperature 98.7 F 02/23/25 15:09 Temperature Source Temporal Artery Scan 02/23/25 15:09 Pulse Rate 87 02/23/25 15:09 Respiratory Rate 18 02/23/25 15:09 Blood Pressure 136/75 02/23/25 15:09 Blood Pressure Mean 95 02/23/25 15:09 Pulse Oximetry 98 02/23/25 15:09 Oxygen Delivery Method Room Air 02/23/25 15:09 Vital Signs Temperature 98.7 F 02/23/25 15:09 Pulse Rate 87 02/23/25 15:09 Respiratory Rate 18 02/23/25 15:09 Blood Pressure 136/75 02/23/25 15:09 Pulse Oximetry 98 02/23/25 15:09 Oxygen Delivery Method Room Air 02/23/25 15:09 Temperature 98.7 F 02/23/25 15:09 Pulse Rate 79 02/23/25 19:30 Respiratory Rate 16 02/23/25 19:30 Blood Pressure 129/67 02/23/25 19:21 Pulse Oximetry 97 02/23/25 19:30 Oxygen Delivery Method Room Air 02/23/25 15:09 <Rogers Delgado MD - Last Filed: 02/23/25 16:50> Initial Vital Signs Temperature 98.7 F 02/23/25 15:09 Temperature Source Temporal Artery Scan 02/23/25 15:09 Pulse Rate 87 02/23/25 15:09 Respiratory Rate 18 02/23/25 15:09 Blood Pressure 136/75 02/23/25 15:09 Blood Pressure Mean 95 02/23/25 15:09 Pulse Oximetry 98 02/23/25 15:09 Oxygen Delivery Method Room Air 02/23/25 15:09 Vital Signs Temperature 98.7 F 02/23/25 15:09 Pulse Rate 87 02/23/25 15:09 Respiratory Rate 18 02/23/25 15:09 Blood Pressure 136/75 02/23/25 15:09 Pulse Oximetry 98 02/23/25 15:09 Oxygen Delivery Method Room Air 02/23/25 15:09 Temperature 98.7 F 02/23/25 15:09 Pulse Rate 79 02/23/25 19:30 Respiratory Rate 16 02/23/25 19:30 Blood Pressure 129/67 02/23/25 19:21 Pulse Oximetry 97 02/23/25 19:30 Oxygen Delivery Method Room Air 02/23/25 15:09 <Ifrah Rosado MD - Last Filed: 02/23/25 21:14> Medications Administered Medications: Discontinued Medications Generic Name Dose Route Start Last Admin Trade Name Freq PRN Reason Stop Dose Admin Sodium Chloride 500 mls @ 500 mls/hr 02/23/25 18:21 02/23/25 18:58 0.9 % Sodium Chloride 500 Ml IV 02/23/25 19:20 500 mls/hr .Q1H ONE Administration <Portia Dubon MD - Last Filed: 02/23/25 15:47> Discontinued Medications Generic Name Dose Route Start Last Admin Trade Name Freq PRN Reason Stop Dose Admin Sodium Chloride 500 mls @ 500 mls/hr 02/23/25 18:21 02/23/25 18:58 0.9 % Sodium Chloride 500 Ml IV 02/23/25 19:20 500 mls/hr .Q1H ONE Administration <Rogers Delgado MD - Last Filed: 02/23/25 16:50> Discontinued Medications Generic Name Dose Route Start Last Admin Trade Name Freq PRN Reason Stop Dose Admin Sodium Chloride 500 mls @ 500 mls/hr 02/23/25 18:21 02/23/25 18:58 0.9 % Sodium Chloride 500 Ml IV 02/23/25 19:20 500 mls/hr .Q1H ONE Administration <Ifrah Rosado MD - Last Filed: 02/23/25 21:14> MDM - Chest Pain MDM Narrative Medical decision making narrative: 1. Chest pain-labs pending at this time. 2. Disposition-will sign this patient out to my colleague Dr. Benjamin 4 disposition. <Portia Dubon MD - Last Filed: 02/23/25 15:47> Medical Records Data Attestation: I reviewed the patient's medical records. <Portia Dubon MD - Last Filed: 02/23/25 15:47> Lab Data Attestation: I reviewed the patient's lab results. <Portia Dubon MD - Last Filed: 02/23/25 15:47> Labs: Lab Results 02/23/25 02/23/25 Range/Units 16:45 17:35 WBC 8.26 (4.50-11.00) K/uL RBC 3.45 L (4.30-5.90) m/uL Hgb 11.4 L (13.5-17.5) gm/dL Hct 33.8 L (37.0-53.0) % MCV 98 (80-100) fL MCH 33 (26-34) pg MCHC 34 (32-36) gm/dL RDW Coeff of Dimple 11.5 (11.5-15.5) % Plt Count 280 (140-440) K/uL Neut % (Auto) 65.8 (42.0-72.0) % Lymph % (Auto) 16.6 L (20-44) % Woodruff % (Auto) 14.8 H (0.0-11.0) % Eos % (Auto) 1.6 (0.0-7.0) % Baso % (Auto) 0.5 (0.0-3.0) % Neut # (Auto) 5.44 (1.7-7.0) K/uL Lymph # (Auto) 1.40 (0.90-2.90) K/uL Woodruff # (Auto) 1.20 H (0.00-0.90) K/UL Eos # (Auto) 0.13 (0.00-0.50) K/uL Baso # (Auto) 0.04 (0.00-0.30) K/uL Abs Immat Gran (auto) 0.06 (0.00-0.30) K/uL Imm/Tot Granulo (auto) 0.7 % D-Dimer Quant (PE/DVT) 6.80 H (0.00-0.50) ug/ml Sodium 129 L (135-149) mmol/L Potassium 4.7 (3.6-5.1) mmol/L Chloride 94 L (96-114) mmol/L Carbon Dioxide 22 (20-32) mmol/L Anion Gap 13 (7-15) mEq/L BUN 31 H (5-24) mg/dL Creatinine 1.9 H (0.5-1.5) mg/dL Estimated Creat Clear 52.71 Estimated GFR 46 ml/min Glucose 93 (60-115) mg/dL Calcium 9.1 (8.4-10.6) mg/dL Total Bilirubin 0.3 (0.1-1.5) mg/dL AST 50 H (12-35) U/L ALT 23 (4-50) U/L Alkaline Phosphatase 152 H (40-150) U/L C-Reactive Protein 2.1 H (0.5-1.0) mg/dL NT-Pro-B Natriuret Pep 136 (See Note) pg/mL Total Protein 8.3 (6.0-8.3) g/dL Albumin 4.3 (3.3-5.0) g/dL Lab Acknowledgement Test Added POC Troponin I 0.00 L (0.01-0.04) ng/ml <Portia Dubon MD - Last Filed: 02/23/25 15:47> Lab Results 02/23/25 02/23/25 Range/Units 16:45 17:35 WBC 8.26 (4.50-11.00) K/uL RBC 3.45 L (4.30-5.90) m/uL Hgb 11.4 L (13.5-17.5) gm/dL Hct 33.8 L (37.0-53.0) % MCV 98 (80-100) fL MCH 33 (26-34) pg MCHC 34 (32-36) gm/dL RDW Coeff of Dimple 11.5 (11.5-15.5) % Plt Count 280 (140-440) K/uL Neut % (Auto) 65.8 (42.0-72.0) % Lymph % (Auto) 16.6 L (20-44) % Woodruff % (Auto) 14.8 H (0.0-11.0) % Eos % (Auto) 1.6 (0.0-7.0) % Baso % (Auto) 0.5 (0.0-3.0) % Neut # (Auto) 5.44 (1.7-7.0) K/uL Lymph # (Auto) 1.40 (0.90-2.90) K/uL Woodruff # (Auto) 1.20 H (0.00-0.90) K/UL Eos # (Auto) 0.13 (0.00-0.50) K/uL Baso # (Auto) 0.04 (0.00-0.30) K/uL Abs Immat Gran (auto) 0.06 (0.00-0.30) K/uL Imm/Tot Granulo (auto) 0.7 % D-Dimer Quant (PE/DVT) 6.80 H (0.00-0.50) ug/ml Sodium 129 L (135-149) mmol/L Potassium 4.7 (3.6-5.1) mmol/L Chloride 94 L (96-114) mmol/L Carbon Dioxide 22 (20-32) mmol/L Anion Gap 13 (7-15) mEq/L BUN 31 H (5-24) mg/dL Creatinine 1.9 H (0.5-1.5) mg/dL Estimated Creat Clear 52.71 Estimated GFR 46 ml/min Glucose 93 (60-115) mg/dL Calcium 9.1 (8.4-10.6) mg/dL Total Bilirubin 0.3 (0.1-1.5) mg/dL AST 50 H (12-35) U/L ALT 23 (4-50) U/L Alkaline Phosphatase 152 H (40-150) U/L C-Reactive Protein 2.1 H (0.5-1.0) mg/dL NT-Pro-B Natriuret Pep 136 (See Note) pg/mL Total Protein 8.3 (6.0-8.3) g/dL Albumin 4.3 (3.3-5.0) g/dL Lab Acknowledgement Test Added POC Troponin I 0.00 L (0.01-0.04) ng/ml <Rogers Delgado MD - Last Filed: 02/23/25 16:50> Lab Results 02/23/25 02/23/25 Range/Units 16:45 17:35 WBC 8.26 (4.50-11.00) K/uL RBC 3.45 L (4.30-5.90) m/uL Hgb 11.4 L (13.5-17.5) gm/dL Hct 33.8 L (37.0-53.0) % MCV 98 (80-100) fL MCH 33 (26-34) pg MCHC 34 (32-36) gm/dL RDW Coeff of Dimple 11.5 (11.5-15.5) % Plt Count 280 (140-440) K/uL Neut % (Auto) 65.8 (42.0-72.0) % Lymph % (Auto) 16.6 L (20-44) % Woodruff % (Auto) 14.8 H (0.0-11.0) % Eos % (Auto) 1.6 (0.0-7.0) % Baso % (Auto) 0.5 (0.0-3.0) % Neut # (Auto) 5.44 (1.7-7.0) K/uL Lymph # (Auto) 1.40 (0.90-2.90) K/uL Woodruff # (Auto) 1.20 H (0.00-0.90) K/UL Eos # (Auto) 0.13 (0.00-0.50) K/uL Baso # (Auto) 0.04 (0.00-0.30) K/uL Abs Immat Gran (auto) 0.06 (0.00-0.30) K/uL Imm/Tot Granulo (auto) 0.7 % D-Dimer Quant (PE/DVT) 6.80 H (0.00-0.50) ug/ml Sodium 129 L (135-149) mmol/L Potassium 4.7 (3.6-5.1) mmol/L Chloride 94 L (96-114) mmol/L Carbon Dioxide 22 (20-32) mmol/L Anion Gap 13 (7-15) mEq/L BUN 31 H (5-24) mg/dL Creatinine 1.9 H (0.5-1.5) mg/dL Estimated Creat Clear 52.71 Estimated GFR 46 ml/min Glucose 93 (60-115) mg/dL Calcium 9.1 (8.4-10.6) mg/dL Total Bilirubin 0.3 (0.1-1.5) mg/dL AST 50 H (12-35) U/L ALT 23 (4-50) U/L Alkaline Phosphatase 152 H (40-150) U/L C-Reactive Protein 2.1 H (0.5-1.0) mg/dL NT-Pro-B Natriuret Pep 136 (See Note) pg/mL Total Protein 8.3 (6.0-8.3) g/dL Albumin 4.3 (3.3-5.0) g/dL Lab Acknowledgement Test Added POC Troponin I 0.00 L (0.01-0.04) ng/ml <Ifrah Rosado MD - Last Filed: 02/23/25 21:14> ECG Data Attestation: I personally reviewed and interpreted this ECG as follows: <Portia Dubon MD - Last Filed: 02/23/25 15:47> ECG interpretation date: 02/23/25 <Portia Dubon MD - Last Filed: 02/23/25 15:47> Interpretation: EKG by my read shows sinus rhythm at a rate of 83. Flattening of the T-waves noted in V2 V3. Nonspecific ST changes in the lateral leads V5 V6. QT and TN intervals within normal limits. <Portia Dubon MD - Last Filed: 02/23/25 15:47> Discharge Plan Discharge Clinical Impression: Elevated serum creatinine Chest pain Qualifiers: Chest pain type: other chest pain Qualified Code(s): R07.89 - Other chest pain <Portia Dubon MD - Last Filed: 02/23/25 15:47> Patient Disposition: Home, Self-Care <Portia Dubon MD - Last Filed: 02/23/25 15:47> Condition: Stable <Portia Dubon MD - Last Filed: 02/23/25 15:47> Instructions: Chest Pain (ED), Pleurisy (ED), Acute Pericarditis (ED) <Portia Dubon MD - Last Filed: 02/23/25 15:47> Additional Instructions: Can try colchicine 0.3 mg daily. You will need to have your basic metabolic panel which includes the kidney function rechecked this week. Your primary care provider should also order an echo to further evaluate the small pericardial effusion seen on the chest CT. You can use Tylenol 1000 mg 3 times a day but should avoid NSAIDs because of your elevated creatinine. This is kidney function and yours is showing some decreased function for your age. I do think you should be referred back to Nephrology which is a kidney specialist, your primary care provider can do this. It is possible that this chest pain could be pericarditis which is mild, this is why we are initiating the colchicine. Colchicine can affect the renal function and does need to be monitored by your primary care provider. Likewise, he should make sure nothing needs to be adjusted at this time. If you are worsening with increasing chest pain, difficulty breathing, developed edema, develops fevers, do recommend re-evaluation. <Portia Dubon MD - Last Filed: 02/23/25 15:47> Activity Level: Activity as Tolerated <Portia Dubon MD - Last Filed: 02/23/25 15:47> Activity as Tolerated <Rogers Delgado MD - Last Filed: 02/23/25 16:50> Activity as Tolerated <Ifrah Rosado MD - Last Filed: 02/23/25 21:14> Prescriptions: New colchicine 0.6 mg tablet 0.3 mg PO DAILY Qty: 7 0RF No Action levothyroxine 88 mcg tablet 88 mcg PO QDAY Qty: 90 1RF metoprolol succinate 200 mg tablet extended release 24 hr 200 mg PO QDAY Qty: 90 1RF amlodipine 10 mg tablet 10 mg PO QDAY Qty: 90 1RF lisinopril-hydrochlorothiazide 20-25 mg tablet 1 tab PO QDAY Qty: 30 1RF <Portia Dubon MD - Last Filed: 02/23/25 15:47> Follow Up/Referrals: Willi Pruett MD [Primary Care Provider, [facility]] <Portia Dubon MD - Last Filed: 02/23/25 15:47> Stand Alone Forms: MyHealth Info Instructions <Portia Dubon MD - Last Filed: 02/23/25 15:47> Procedures Ultrasound Vascular Access exam #1: Description/Findings: Dr. Delgado was asked to evaluate this patient for potential ultrasound IV. Nurses are not able to get access with regular vena puncture. Using the high-frequency linear array bedside ultrasound that the nurses have I was able to identify an appropriate peripheral IV site in the patient's right antecubital fossa. After sterile prep with alcohol and using sterile Tegaderm cover and sterile ultrasound probe gel, I was able to place a 18 gauge standard length IV cannula into the patient's vein in her right antecubital fossa. Placement was confirmed by visualizing the IV catheter in the vein. We were able to pull 10 mL of blood for lab draw without resistance. We were able to flush the IV catheter with 10 mL of saline and no discomfort or swelling or signs of infiltration were noted. Sterile dressing was placed. Patient tolerated the procedure well. I am not able to save ultrasound images with the nurses bedside ultrasound machine. <Rogers Delgado MD - Last Filed: 02/23/25 16:50>
[2025-02-23 17:05] LABS: Hematocrit 33.8 % (37.0-53.0); Hemoglobin* 11.4 gm/dL (13.5-17.5); Immature Granulocytes Abs Auto 0.06 K/uL (0.00-0.30); Immature Granulocytes Pct Auto 0.7 %; Mean Corpuscular HGB Conc 34 gm/dL (32-36); Mean Corpuscular Hemoglobin 33 pg (26-34); Mean Corpuscular Volume 98 fL (80-100); RDW Coefficient of Variation % 11.5 % (11.5-15.5); Red Blood Count 3.45 m/uL (4.30-5.90); White Blood Count* 8.26 K/uL (4.50-11.00)
[2025-02-23 17:08] LABS: Lymphocytes Absolute Auto 1.40 K/uL (0.90-2.90); Slide Review Reflex No
[2025-02-23 17:12] LABS: Troponin, Point-of-Care* 0.00 ng/ml (0.01-0.04)
[2025-02-23 17:20] LABS: Albumin* 4.3 g/dL (3.3-5.0); Chloride* 94 mmol/L (96-114); Sodium* 129 mmol/L (135-149)
[2025-02-23 17:21] LABS: Potassium* 4.7 mmol/L (3.6-5.1)
[2025-02-23 17:23] LABS: Blood Urea Nitrogen* 31 mg/dL (5-24); Creatinine* 1.9 mg/dL (0.5-1.5); Est. Creatinine Clearance* 52.71; Estimated Glomerular Filt Rate 46 ml/min
[2025-02-23 17:24] LABS: Alanine Aminotransferase* 23 U/L (4-50); Alkaline Phosphatase* 152 U/L (40-150); Anion Gap 13 mEq/L (7-15); Aspartate Amino Transferase* 50 U/L (12-35); Bilirubin Total* 0.3 mg/dL (0.1-1.5); Calcium* 9.1 mg/dL (8.4-10.6); Carbon Dioxide* 22 mmol/L (20-32); Glucose* 93 mg/dL (60-115); Total Protein* 8.3 g/dL (6.0-8.3)
[2025-02-23 17:52] LABS: D Dimer Quantitative* 6.80 ug/ml (0.00-0.50)
[2025-02-23 18:12] LABS: NT Pro B Type NatriureticPept* 136 pg/mL (See Note)
--- NOTE | 2025-02-23 18:21 | CRLHL7_ITS ---
For Patients: As a result of the Century Cures Act, medical imaging exams and procedure reports are released immediately into your electronic medical record. You may view this report before your referring provider. If you have questions, please contact your health care provider. INDICATION: Chest discomfort, elevated D-dimer. TECHNIQUE: CT chest PE was acquired with 95 cc Isovue 370 IV contrast. COMPARISON: None. FINDINGS: Heart and vasculature: Contrast opacification of the pulmonary arterial tree is adequate. No sign of pulmonary embolism. Heart size is normal. Thoracic aorta and pulmonary artery are normal in caliber. Small pericardial effusion. Lungs and pleura: No suspicious nodules or infiltrates. Small bilateral pleural effusions with adjacent passive atelectasis. No pneumothorax. Lymph nodes/mediastinum: No mediastinal, hilar, or axillary adenopathy. Chest wall: No masses. Upper abdomen: No acute or significant findings. Diverticulosis. Bones: Unremarkable for age. IMPRESSION: 1. No pulmonary embolism. 2. Small pericardial effusion. 3. Small bilateral pleural effusions with adjacent passive atelectasis. Please note that all CT scans at this facility use dose modulation, iterative reconstruction, and/or weight-based dosing when appropriate to reduce radiation dose to as low as reasonably achievable. Dictated by Rogers Fofana MD @ 02/23/2025 8:20:29 PM (Electronically Signed)
[2025-02-23] MEDS: 0.9 % SODIUM CHLORIDE 500 ML 500 ML IV (18:58)
== END 2025-02-23 21:20 | disposition home or self-care (01) ==
PROVIDERS: Family Medicine; Emergency Provider Family Medicine; PCP Family Medicine
DX: R07.9 Chest pain, unspecified (principal); R79.89 Other specified abnormal findings of blood chemistry
CPT/HCPCS: 36415; 71275; 80053; 83880; 84484; 85025; 85379; 86140; 93005; 99284; 99285; J7030; Q9967

== ENCOUNTER 2025-02-27 14:50 | Outpatient (CLI) | payer OTHER, SELFPAY | END 2025-02-27 14:51 | disposition home or self-care (01) | LOC: LKVREF 14:52 | PROVIDERS: PCP Family Medicine; Visit Provider Family Medicine | DX: E03.9 Hypothyroidism, unspecified (principal); R79.89 Other specified abnormal findings of blood chemistry; I12.9 Hypertensive chronic kidney disease with stage 1 through stage 4 chronic kidney disease, or unspecified chronic kidney disease; N18.9 Chronic kidney disease, unspecified; K76.0 Fatty (change of) liver, not elsewhere classified | CPT/HCPCS: 82043; 82570; 84443; 86140 ==

== ENCOUNTER 2025-04-04 12:56 | Outpatient (CLI) | payer OTHER, SELFPAY | END 2025-04-04 12:57 | disposition home or self-care (01) | LOC: RAD 12:58 | PROVIDERS: PCP Family Medicine; Visit Provider Family Medicine | DX: R07.89 Other chest pain (principal); I34.0 Nonrheumatic mitral (valve) insufficiency; I07.1 Rheumatic tricuspid insufficiency; I31.9 Disease of pericardium, unspecified | CPT/HCPCS: 93306 ==

== ENCOUNTER 2025-04-16 15:39 | Outpatient (CLI) | payer OTHER, SELFPAY ==
--- NOTE | 2025-04-16 15:45 | CRLHL7_ITS ---
For Patients: As a result of the Century Cures Act, medical imaging exams and procedure reports are released immediately into your electronic medical record. You may view this report before your referring provider. If you have questions, please contact your health care provider. INDICATION: Hypertension TECHNIQUE: Grayscale, color Doppler and spectral Doppler evaluation of the kidneys and renal arteries performed. COMPARISON: None available FINDINGS: BILATERAL RENAL ARTERY DUPLEX ULTRASOUND ABDOMINAL AORTA: Peak systolic velocity = 143 cm/s. No aortic aneurysm. RIGHT KIDNEY: 10.1 cm in length. There is no hydronephrosis. Peak systolic velocity = 208 cm/second Renal artery to aortic peak systolic velocity ratio = 1.5 Resistive indices: 0.76 Renal vein = patent LEFT KIDNEY: 11.3 cm in length. There is no hydronephrosis. Peak systolic velocity = 241 cm/second Renal artery to aortic peak systolic velocity ratio = 1.7 Resistive indices: 0.77 Renal vein = patent IMPRESSION: No evidence of significant renal artery stenosis. Dictated by Alfredo Healy MD @ 04/17/2025 6:40:19 AM (Electronically Signed)
== END 2025-04-16 15:40 | disposition home or self-care (01) ==
LOC: US 15:39
PROVIDERS: PCP Family Medicine; Visit Provider Internal Medicine Nephrology
DX: I12.9 Hypertensive chronic kidney disease with stage 1 through stage 4 chronic kidney disease, or unspecified chronic kidney disease (principal); N18.9 Chronic kidney disease, unspecified
CPT/HCPCS: 76775; 93975

== ENCOUNTER 2025-04-21 16:36 | Outpatient (CLI) | payer OTHER, SELFPAY | END 2025-04-21 16:37 | disposition home or self-care (01) | LOC: NFLDREF 04-25 16:03 | PROVIDERS: PCP Family Medicine; Referring Provider Family Medicine; Visit Provider Internal Medicine Nephrology | DX: N18.30 Chronic kidney disease, stage 3 unspecified (principal); E03.9 Hypothyroidism, unspecified; E87.1 Hypo-osmolality and hyponatremia; E66.9 Obesity, unspecified; R79.89 Other specified abnormal findings of blood chemistry; K76.0 Fatty (change of) liver, not elsewhere classified; I12.9 Hypertensive chronic kidney disease with stage 1 through stage 4 chronic kidney disease, or unspecified chronic kidney disease | CPT/HCPCS: 80053; 80061; 80069; 80076; 82565; 82610; 82728; 83540; 83550; 87086 ==

== ENCOUNTER 2025-04-24 10:56 | Outpatient (CLI) | payer OTHER, SELFPAY | END 2025-04-24 10:57 | disposition home or self-care (01) | LOC: NFLDREF 04-29 07:47 | PROVIDERS: PCP Family Medicine; Referring Provider Family Medicine; Visit Provider Obstetrics & Gynecology | DX: I10 Essential (primary) hypertension (principal); E87.1 Hypo-osmolality and hyponatremia; N18.30 Chronic kidney disease, stage 3 unspecified | CPT/HCPCS: 80048 ==

== ENCOUNTER 2025-08-06 08:24 | Outpatient (CLI) | payer BC, SELFPAY | END 2025-08-06 08:25 | disposition home or self-care (01) | LOC: NFLDREF 08-11 10:13 | PROVIDERS: PCP Family Medicine; Referring Provider Family Medicine; Visit Provider Family Medicine | DX: E87.1 Hypo-osmolality and hyponatremia (principal) | CPT/HCPCS: 80048 ==